=== PATIENT | female | born 1960 | race Caucasian/White ===

== ENCOUNTER 2017-02-18 20:42 | Inpatient (IN) | payer BC ==
[2017-02-18 20:48] VITALS: BMI 33.9
[2017-02-18] MEDS ORDERED: Albuterol-Ipratrop 3 mg / 0.5 (3 ml) UD IH STA (21:53)
--- NOTE | 2017-02-18 21:58 | ED PDOC ---
Arrival/HPI - General Chief Complaint: Fever Time Seen by Provider: 02/18/17 20:55 Historian: Patient - History of Present Illness Narrative History of Present Illness (Text): 02/18/17 21:50 A 56 year old female presents to the emergency department complaining of fever, slight nonproductive cough. Patient reports had some chest pain with deep breaths and mildly shortness of breath. Also, patient didn't realize she has fever until arriving here, with temperature measuring to 103. Unknown sick contacts. Patient denies any nausea, vomiting, diarrhea, or any other complaints. PMD: Dr. Whitley Past Medical History - Provider Review Nursing Documentation Reviewed: Yes - Infectious Disease Hx of Infectious Diseases: None - Tetanus Immunization Tetanus Immunization: Unknown - Cardiac Hx Hypertension: Yes - Pulmonary Hx Respiratory Disorders: No - Neurological Hx Neurological Disorder: No - HEENT Hx HEENT Disorder: No - Renal Hx Renal Disorder: No - Endocrine/Metabolic Hx Diabetes Mellitus Type 2: Yes Hx Hypothyroidism: Yes - Hematological/Oncological Hx Blood Disorders: No - Integumentary Hx Dermatological Disorder: No - Musculoskeletal/Rheumatological Hx Musculoskeletal Disorders: No - Gastrointestinal Hx Gastrointestinal Disorders: No - Genitourinary/Gynecological Hx Genitourinary Disorders: No - Psychiatric Hx Depression: No Hx Emotional Abuse: No Hx Physical Abuse: No Hx Substance Use: No - Surgical History Hx Cholecystectomy: Yes Other/Comment: OVARIAN CYSTS - Anesthesia Hx Anesthesia: Yes Hx Anesthesia Reactions: No Hx Malignant Hyperthermia: No - Suicidal Assessment Feels Threatened In Home Enviroment: No Family/Social History - Physician Review Nursing Documentation Reviewed: Yes Family/Social History: No Known Family HX Smoking Status: Never Smoked Hx Alcohol Use: No Hx Substance Use: No Hx Substance Use Treatment: No Allergies/Home Meds Allergies/Adverse Reactions: Allergies Penicillins Allergy (Verified 02/18/17 20:49) RASH Home Medications: Home Meds Medication Instructions Recorded Confirmed Levothyroxine Sodium 0.15 mg PO DAILY 08/13/11 02/19/17 Losartan [Cozaar] 50 mg PO DAILY 04/07/14 02/18/17 Celecoxib [celeBREX] 200 mg PO DAILY 02/18/17 02/18/17 Ergocalciferol (Vitamin D2) 50,000 unit PO QWK 02/18/17 02/18/17 [Vitamin D2] Lansoprazole [Prevacid] 30 mg PO DAILY 02/18/17 02/18/17 Metformin HCl [Fortamet] 500 mg PO BID 02/18/17 02/18/17 Mirabegron [Myrbetriq] 50 mg PO DAILY 02/18/17 02/18/17 Mv,Min10/Folic Acid/D3/Ala/Lut 1 tab PO DAILY 02/18/17 02/18/17 [Strovite One Caplet] Review of Systems - Physician Review All systems were reviewed & negative as marked: Yes - Review of Systems Constitutional: Fevers (temperature measuring at 103) Respiratory: SOB (mild), Cough (nonproductive) Cardiovascular: Chest Pain (with deep breathsm) Gastrointestinal: absent: Nausea, Vomiting, Appetite Changes Physical Exam Vital Signs Reviewed: Yes Vital Signs Temp Pulse Resp BP Pulse Ox 02/19/17 05:00 98.6 F 83 22 150/71 99 02/19/17 03:59 98.6 F 84 21 151/75 H 99 02/19/17 02:25 98.6 F 88 18 159/94 H 100 02/19/17 02:09 98.1 F 79 19 129/88 99 02/19/17 00:36 98.6 F 89 17 126/74 96 02/18/17 23:17 98.6 F 02/18/17 22:17 103.5 F H 02/18/17 20:49 103.5 F H 116 H 17 149/113 H 96 02/18/17 20:47 103.5 F H 116 H 17 149/113 H 96 Temperature: Afebrile Blood Pressure: Normal Pulse: Regular Respiratory Rate: Normal Appearance: Positive for: Well-Appearing Pain Distress: None Mental Status: Positive for: Alert and Oriented X 3 - Systems Exam Head: Present: Atraumatic, Normocephalic Pupils: Present: PERRL Extroacular Muscles: Present: EOMI Conjunctiva: Present: Normal Mouth: Present: Dry Pharnyx: Present: Normal Nose (Internal): Present: Normal Inspection Neck: Present: Normal Range of Motion Respiratory/Chest: Present: Decreased Breath Sounds (b/l). No: Wheezes Abdomen: Present: Tenderness, Normal Bowel Sounds. No: Distention, Peritoneal Signs Upper Extremity: Present: Normal Inspection Lower Extremity: Present: Normal Inspection Neurological: Present: GCS=15 Skin: Present: Warm, Dry Psychiatric: Present: Alert, Oriented x 3 Medical Decision Making ED Course and Treatment: 02/18/17 22:56 Impression: 56 year old female presents complaining of a fever and nonproductive cough. Patient is also complaining of chest pain and shortness of breath. Plan: -- VBG -- Labs -- EKG -- Chest X-ray -- Duoneb -- Rocephin -- Tylenol -- Blood Culture -- Urine Culture -- Influenza A B -- Urinalysis -- Reassess and disposition Progress Notes: EKG shows Sinus Tachycardia at [address] depressions on V4, V5, and V6. Interpreted by me. CXR Impression: As read by me, NAD Patient is complaining of LLQ pain. Patient is very tender. Order CT on abdomen to r/o diverticulitis. Anticipated admission for fever and possible diverticulitis as well as chest pain with EKG changes. pt was given prophylactic antibiotics. likely fever of URI or abdominal origin, doubt meningitis. 02/18/17 23:04 Case signed out to Dr. Ring pending CT of Abdomen & Pelvis IV Contrast and reassessment/disposition. 02/21/17 19:35 - Lab Interpretations Microbiology Results: Microbiology Results 02/18/17 22:15 Blood Blood Culture - Preliminary NO GROWTH AFTER 48 HOURS 02/18/17 21:35 Blood Blood Culture - Preliminary NO GROWTH AFTER 48 HOURS 02/18/17 23:59 Urine,Clean Catch Urine Culture - Final Corynebacterium Species Lab Results: 02/18/17 21:35 02/18/17 21:35 Lab Results 02/19/17 11:10: POC Glucose (mg/dL) 90 02/19/17 07:15: POC Glucose (mg/dL) 102 02/19/17 02:44: pO2 239 H, VBG pH 7.42, VBG pCO2 43.0, VBG HCO3 27.9, VBG Total CO2 29.2 H, VBG O2 Sat (Calc) 98.5 H, VBG Base Excess 2.9 H, VBG Potassium 3.9, Sodium 140.0, Chloride 107.0, Glucose 116 H, Lactate 1.8, FiO2 21.0, Venous Blood Potassium 3.9 02/18/17 23:59: Urine Color Yellow, Urine Appearance Clear, Urine pH 7.0, Ur Specific [place] 1.015, Urine Protein Trace H, Urine Glucose (UA) Negative, Urine Ketones Trace H, Urine Blood Negative, Urine Nitrate Negative, Urine Bilirubin Negative, Urine Urobilinogen 0.2, Ur Leukocyte Esterase Negative, Urine RBC 0 - 2, Urine WBC 0 - 2, Ur Epithelial Cells 0 - 2 02/18/17 21:35: Sodium 135, Chloride 99, Potassium 4.4, Carbon Dioxide 26, Anion Gap 15, BUN 9, Creatinine 0.6 L, Est GFR ( Amer) > 60, Est GFR (Non -Af Amer) > 60, Random Glucose 146 H, Calcium 9.4, Phosphorus 3.2, Magnesium 1.5 L, Total Bilirubin 1.5 H, AST 54 H, ALT 52, Alkaline Phosphatase 62, Troponin I < 0.01, Total Protein 8.1, Albumin 4.4, Globulin 3.7, Albumin/ Globulin Ratio 1.2 02/18/17 21:35: pO2 109 H, VBG pH 7.46 H, VBG pCO2 38.0 L, VBG HCO3 27.0, VBG Total CO2 28.2 H, VBG O2 Sat (Calc) 98.1 H, VBG Base Excess 3.1 H, VBG Potassium 4.9, Sodium 136.0, Chloride 101.0, Glucose 150 H, Lactate 2.1, FiO2 21.0, Venous Blood Potassium 4.9 02/18/17 21:35: PT 13.8 H, INR 1.26 H, APTT 30.3 02/18/17 21:35: WBC 10.1 D, RBC 4.24, Hgb 12.3, Hct 38.0, MCV 89.6, MCH 29.0, MCHC 32.4, RDW 13.8, Plt Count 200, MPV 9.8, Gran % 77.9 H, Lymph % (Auto) 12.8 L, [place] % (Auto) 7.4 H, Eos % (Auto) 1.8, Baso % (Auto) 0.1, Gran # 7.89 H, Lymph # 1.3, [place] # 0.8 H, Eos # 0.2, Baso # 0.01 02/18/17 21:35: Influenza Typ A,B (EIA) Negative for flu a/b - RAD Interpretation Radiology Orders: 02/18/17 20:56 CHEST PORTABLE [RAD] Stat 02/18/17 22:53 CHEST,ABD,PEL W/IV CONT ONLY [CT] Stat - Medication Orders Current Medication Orders: Discontinued Medications Acetaminophen (Tylenol 325mg Tab) 975 mg PO ONCE PRN PRN Reason: Fever >100.4 F Last Admin: 02/18/17 22:17 Dose: 975 mg [facility] Pain/Vitals Document 02/18/17 22:17 CAST (Rec: 02/18/17 22:[id number]) Pain Reassessment Is This A Pain ReAssessment? No Sleep Is patient sleeping during reassessment? No Presence of Pain Presence of Pain No Vitals Temperature (97.6 F-99.6 F) 103.5 F Temperature Source Oral Re-Assess: [facility] Pain/Vitals Document 02/18/17 23:17 AB (Rec: 02/19/17 03:58 [id number] Vitals Temperature (97.6 F-99.6 F) 98.6 F Temperature Source Oral Acetaminophen (Tylenol 325mg Tab) 650 mg PO Q4H PRN PRN Reason: Pain, Mild (1-3) Last Admin: 02/21/17 04:11 Dose: 650 mg [facility] Pain/Vitals Document 02/21/17 04:11 IMT (Rec: 02/21/17 04:11 IMT [id number]) Presence of Pain Presence of Pain Yes Location Pain Location Body Site Generalized Description Intermittent Re-Assess: [facility] Pain/Vitals Document 02/21/17 05:11 IMT (Rec: 02/21/17 05:42 IMT [id number] Sleep Is patient sleeping during reassessment? Yes Albuterol/Ipratropium (Duoneb 3 Mg/0.5 Mg (3 Ml) Ud) 3 ml IH STAT STA Stop: 02/18/17 21:54 Last Admin: 02/18/17 23:12 Dose: 3 ml Aspirin (Aspirin Chewable) 324 mg PO STAT STA Stop: 02/18/17 23:00 Last Admin: 02/19/17 00:40 Dose: Not Given Non-Admin Reason: Patient Refused Aspirin (Aspirin Chewable) 81 mg PO DAILY [facility] Last Admin: 02/21/17 09:24 Dose: 81 mg Enoxaparin Sodium (Lovenox) 40 mg SC DAILY SHARATH PRN Reason: Protocol Last Admin: 02/21/17 09:23 Dose: 40 mg Subcutaneous Administrations Document 02/21/17 09:23 LMN (Rec: 02/21/17 09:23 LMN [id number] Injection Site MAR Injection Site Left Arm Charges for Administration # of Subcutaneous Administrations 1 Ergocalciferol (Drisdol 50,000 Intl Units Cap) 1 cap PO QWK SHARATH Last Admin: 02/19/17 10:07 Dose: 1 cap Lactated Ringer's 3,000 ml/ IV (SUPPLIES) 3,000 mls @ 5,715.24 mls/hr IV ONCE ONE PRN Reason: 60 ML/KG/HR Stop: 02/18/17 21:29 Last Admin: 02/18/17 22:16 Dose: Magnesium Sulfate/Dextrose (Magnesium Sulfate 1 Gm/100 Ml D5w) 1 gm in 100 mls @ 100 mls/hr IVPB ONCE ONE Stop: 02/18/17 23:58 Last Admin: 02/19/17 00:11 Dose: 100 mls/hr eMAR Start Stop Document 02/19/17 00:11 [email or web address] (Rec: 02/19/17 00:11 [email or web address] [facility] [id number]) Intravenous Solution Start Date 02/19/17 Start Time 00:11 End Date 02/19/17 Levofloxacin/Dextrose (Levaquin 750mg) 750 mg in 150 mls @ 100 mls/hr IVPB STAT STA Stop: 02/19/17 00:47 Last Admin: 02/19/17 01:08 Dose: 100 mls/hr eMAR Start Stop Document 02/19/17 01:08 [email or web address] (Rec: 02/19/17 01:08 [email or web address] [facility] [id number]) Intravenous Solution Start Date 02/19/17 Start Time 01:08 End Date 02/19/17 Meropenem (Merrem Iv 1 Gm Premix) 50 mls @ 100 mls/hr IVPB Q8 SHARATH PRN Reason: Protocol Stop: 02/27/17 22:01 Last Admin: 02/21/17 05:43 Dose: 100 mls/hr eMAR Start Stop Document 02/21/17 05:43 IMT (Rec: 02/21/17 05:43 IMT [facility] [id number]) Intravenous Solution Start Date 02/21/17 Start Time 05:43 End Date 02/21/17 End time 06:13 Total Infusion Time 30 Meropenem 1 gm/ Sodium (Chloride) 100 mls @ 100 mls/hr IVPB Q8 [facility] Levothyroxine Sodium (Synthroid) 112 mcg PO 0600 [facility] Last Admin: 02/21/17 05:43 Dose: 112 mcg Losartan Potassium (Cozaar) 50 mg PO DAILY [facility] Last Admin: 02/21/17 09:23 Dose: 50 mg Magnesium Oxide (Mag-Ox) 400 mg PO BID [facility] Last Admin: 02/21/17 09:24 Dose: 400 mg Metformin HCl (Glucophage) 500 mg PO BID [facility] Last Admin: 02/19/17 10:08 Dose: Mirabegron [ Myrbetriq] 50 Mg ( Home Med) 50 mg PO DAILY [facility] Last Admin: 02/19/17 10:08 Dose: Mv,Min10/Folic Acid/D3/Ala/Lut [Strovite One Caplet] (Home Med) 1 tab PO DAILY [facility] Last Admin: 02/19/17 10:08 Dose: Mv,Min10/Folic Acid/D3/Ala/Lut [Strovite One Caplet] (Home Med) 1 tab PO DAILY [facility] Last Admin: 02/20/17 09:46 Dose: 1 tab Mirabegron [ Myrbetriq] 50 Mg ( Home Med) 50 mg PO DAILY [facility] Last Admin: 02/20/17 09:46 Dose: 50 mg Pantoprazole Sodium (Protonix Ec Tab) 40 mg PO 0600 [facility] Last Admin: 02/21/17 05:45 Dose: 40 mg - Scribe Statement The provider has reviewed the documentation as recorded by the Renetta Ty Provider Scribe Attestation: All medical record entries made by the Renetta were at my direction and personally dictated by me. I have reviewed the chart and agree that the record accurately reflects my personal performance of the history, physical exam, medical decision making, and the department course for this patient. I have also personally directed, reviewed, and agree with the discharge instructions and disposition. Disposition/Present on Arrival - Present on Arrival Any Indicators Present on Arrival: No History of DVT/PE: No History of Uncontrolled Diabetes: No Urinary Catheter: No History of Decub. Ulcer: No History Surgical Site Infection Following: None - Disposition Have Diagnosis and Disposition been Completed?: Yes Diagnosis: Sepsis Disposition: HOSPITALIZED Disposition Time: 00:00 Patient Plan: Admission Condition: IMPROVED
[2017-02-18 22:05] LABS: BASO # 0.01 K/mm3 (0.0-2.0); BASO % 0.1 % (0.0-3.0); EOS # 0.2 (0.0-0.7); EOS % 1.8 % (1.5-5.0); GRAN # 7.89 (1.4-6.5); GRAN % 77.9 % (50.0-68.0); HEMOGLOBIN 12.3 g/dL (12.0-16.0); LYMPH # 1.3 (1.2-3.4); LYMPH % 12.8 % (22.0-35.0); MEAN CELL VOLUME 89.6 fl (80.0-105.0); MEAN CORPUSCULAR HGB CONC 32.4 g/dl (31.0-37.0); MEAN PLATELET VOLUME 9.8 fl (7.0-11.0); MONO # 0.8 (0.1-0.6); MONO % 7.4 % (1.0-6.0); RBC 4.24 10^6/uL (3.5-6.1); RED CELL DISTRIBUTION WIDTH 13.8 % (11.5-14.5); WHITE BLOOD COUNT 10.1 10^3/ul (4.5-11.0)
[2017-02-18 22:18] LABS: INR 1.26 (0.93-1.08); PARTIAL THROMBOPLASTIN TIME 30.3 Seconds (25.1-36.5); PROTHROMBIN TIME 13.8 SECONDS (9.4-12.5)
[2017-02-18 22:32] LABS: ALB/GLOB RATIO 1.2 (1.1-1.8); ALBUMIN 4.4 g/dL (3.0-4.8); CALCIUM 9.4 mg/dL (8.4-10.5); GFR AFRICAN-AMERICAN > 60; GFR NON-AFRICAN AMERICAN > 60
[2017-02-18 22:33] LABS: ALT/SGPT 52 U/L (7-56); AST/SGOT 54 U/L (14-36); BLOOD UREA NITROGEN 9 mg/dL (7-21); MAGNESIUM 1.5 mg/dL (1.7-2.2)
[2017-02-18 22:44] LABS: TROPONIN I < 0.01 ng/mL
[2017-02-18] MEDS ORDERED: cefTRIAXone 1 gm 1 GM/100 ML BAG IVPB STA (22:50)
[2017-02-18] MEDS ORDERED: Piperacillin/Tazobact 3.375 gm 100 ML IVPB STA (22:54)
[2017-02-18] MEDS ORDERED: Magnesium Sulfate 1 gm in D5W 1 GM/100 ML BAG IVPB ONE (22:59)
--- NOTE | 2017-02-18 23:14 | ED PDOC ---
Physical Exam Vital Signs Temp Pulse Resp BP Pulse Ox 02/19/17 05:00 98.6 F 83 22 150/71 99 02/19/17 03:59 98.6 F 84 21 151/75 H 99 02/19/17 02:25 98.6 F 88 18 159/94 H 100 02/19/17 02:09 98.1 F 79 19 129/88 99 02/19/17 00:36 98.6 F 89 17 126/74 96 02/18/17 23:17 98.6 F 02/18/17 22:17 103.5 F H 02/18/17 20:49 103.5 F H 116 H 17 149/113 H 96 02/18/17 20:47 103.5 F H 116 H 17 149/113 H 96 Medical Decision Making ED Course and Treatment: 02/18/17 23:09 Case endorsed to me by Dr. Mendoza. Pending CT Abd & Pelvis and reassessment/ disposition. 02/19/17 00:40 Labs were reviewed. Lactate shows 2.1. Code sepsis called. 02/19/17 04:15 EXAM: CT Chest With Intravenous Contrast and CT Abdomen and Pelvis With Intravenous Contrast Dictated and Authenticated by: Shannan Akins MD 02/19/2017 4:02 AM IMPRESSION: - Question mild pulmonary vascular congestion. Recommend clinical correlation. - Otherwise, no evidence of significant acute process in the chest, abdomen or pelvis. - 3 cm hyperdense right adnexal mass. Differential considerations include a complex cystic lesion of the right ovary, such as a hemorrhagic cyst or endometrioma, or an exophytic right uterine fibroid. Pelvic ultrasound is recommended for further evaluation. If there is acute right adnexal or pelvic pain or tenderness, consider emergent pelvic ultrasound. - See above for remaining findings. 02/19/17 05:[address] Whitley who is aware and agrees with the plan. He accepts patient. Patient will go to [facility] [place] for sepsis. - Lab Interpretations Lab Results: 02/18/17 21:35 02/18/17 21:35 Lab Results 02/19/17 02:44: pO2 239 H, VBG pH 7.42, VBG pCO2 43.0, VBG HCO3 27.9, VBG Total CO2 29.2 H, VBG O2 Sat (Calc) 98.5 H, VBG Base Excess 2.9 H, VBG Potassium 3.9, Sodium 140.0, Chloride 107.0, Glucose 116 H, Lactate 1.8, FiO2 21.0, Venous Blood Potassium 3.9 02/18/17 23:59: Urine Color Yellow, Urine Appearance Clear, Urine pH 7.0, Ur Specific [place] 1.015, Urine Protein Trace H, Urine Glucose (UA) Negative, Urine Ketones Trace H, Urine Blood Negative, Urine Nitrate Negative, Urine Bilirubin Negative, Urine Urobilinogen 0.2, Ur Leukocyte Esterase Negative, Urine RBC 0 - 2, Urine WBC 0 - 2, Ur Epithelial Cells 0 - 2 02/18/17 21:35: Sodium 135, Chloride 99, Potassium 4.4, Carbon Dioxide 26, Anion Gap 15, BUN 9, Creatinine 0.6 L, Est GFR ( Amer) > 60, Est GFR (Non -Af Amer) > 60, Random Glucose 146 H, Calcium 9.4, Phosphorus 3.2, Magnesium 1.5 L, Total Bilirubin 1.5 H, AST 54 H, ALT 52, Alkaline Phosphatase 62, Troponin I < 0.01, Total Protein 8.1, Albumin 4.4, Globulin 3.7, Albumin/ Globulin Ratio 1.2 02/18/17 21:35: pO2 109 H, VBG pH 7.46 H, VBG pCO2 38.0 L, VBG HCO3 27.0, VBG Total CO2 28.2 H, VBG O2 Sat (Calc) 98.1 H, VBG Base Excess 3.1 H, VBG Potassium 4.9, Sodium 136.0, Chloride 101.0, Glucose 150 H, Lactate 2.1, FiO2 21.0, Venous Blood Potassium 4.9 02/18/17 21:35: PT 13.8 H, INR 1.26 H, APTT 30.3 02/18/17 21:35: WBC 10.1 D, RBC 4.24, Hgb 12.3, Hct 38.0, MCV 89.6, MCH 29.0, MCHC 32.4, RDW 13.8, Plt Count 200, MPV 9.8, Gran % 77.9 H, Lymph % (Auto) 12.8 L, [place] % (Auto) 7.4 H, Eos % (Auto) 1.8, Baso % (Auto) 0.1, Gran # 7.89 H, Lymph # 1.3, [place] # 0.8 H, Eos # 0.2, Baso # 0.01 02/18/17 21:35: Influenza Typ A,B (EIA) Negative for flu a/b - RAD Interpretation Radiology Orders: 02/18/17 20:56 CHEST PORTABLE [RAD] Stat 02/18/17 22:53 CHEST,ABD,PEL W/IV CONT ONLY [CT] Stat - Medication Orders Current Medication Orders: Acetaminophen (Tylenol 325mg Tab) 975 mg PO ONCE PRN PRN Reason: Fever >100.4 F Last Admin: 02/18/17 22:17 Dose: 975 mg MAR Pain/Vitals Document 02/18/17 22:17 CAST (Rec: 02/18/17 22:17 [email or web address] [facility] [id number]) Pain Reassessment Is This A Pain ReAssessment? No Sleep Is patient sleeping during reassessment? No Presence of Pain Presence of Pain No Vitals Temperature (97.6 F-99.6 F) 103.5 F Temperature Source Oral Re-Assess: MAR Pain/Vitals Document 02/18/17 23:17 AB (Rec: 02/19/17 03:58 AB [facility] [id number]) Vitals Temperature (97.6 F-99.6 F) 98.6 F Temperature Source Oral Discontinued Medications Albuterol/Ipratropium (Duoneb 3 Mg/0.5 Mg (3 Ml) Ud) 3 ml IH STAT STA Stop: 02/18/17 21:54 Last Admin: 02/18/17 23:12 Dose: 3 ml Aspirin (Aspirin Chewable) 324 mg PO STAT STA Stop: 02/18/17 23:00 Last Admin: 02/19/17 00:40 Dose: Not Given Non-Admin Reason: Patient Refused Lactated Ringer's 3,000 ml/ IV (SUPPLIES) 3,000 mls @ 5,715.24 mls/hr IV ONCE ONE PRN Reason: 60 ML/KG/HR Stop: 02/18/17 21:29 Last Admin: 02/18/17 22:16 Dose: Magnesium Sulfate/Dextrose (Magnesium Sulfate 1 Gm/100 Ml D5w) 1 gm in 100 mls @ 100 mls/hr IVPB ONCE ONE Stop: 02/18/17 23:58 Last Admin: 02/19/17 00:11 Dose: 100 mls/hr eMAR Start Stop Document 02/19/17 00:11 [email or web address] (Rec: 02/19/17 00:11 [email or web address] [facility] [id number]) Intravenous Solution Start Date 02/19/17 Start Time 00:11 End Date 02/19/17 Levofloxacin/Dextrose (Levaquin 750mg) 750 mg in 150 mls @ 100 mls/hr IVPB STAT STA Stop: 02/19/17 00:47 Last Admin: 02/19/17 01:08 Dose: 100 mls/hr eMAR Start Stop Document 02/19/17 01:08 [email or web address] (Rec: 02/19/17 01:08 [email or web address] [id number]) Intravenous Solution Start Date 02/19/17 Start Time 01:08 End Date 02/19/17 - Scribe Statement The provider has reviewed the documentation as recorded by the Renetta Medina Provider Scribe Attestation: All medical record entries made by the Lennyibsiria were at my direction and personally dictated by me. I have reviewed the chart and agree that the record accurately reflects my personal performance of the history, physical exam, medical decision making, and the department course for this patient. I have also personally directed, reviewed, and agree with the discharge instructions and disposition. Disposition/Present on Arrival - Present on Arrival Any Indicators Present on Arrival: No History of DVT/PE: No History of Uncontrolled Diabetes: No Urinary Catheter: No History of Decub. Ulcer: No History Surgical Site Infection Following: None - Disposition Have Diagnosis and Disposition been Completed?: Yes Diagnosis: Sepsis Disposition: HOSPITALIZED Disposition Time: 04:25 Patient Problems: Current Active Problems Problem Status Onset Sepsis Acute Condition: IMPROVED
[2017-02-18] MEDS ORDERED: levoFLOXacin 750 mg in D5W 750 MG/150 ML BAG IVPB STA (23:18)
[2017-02-18] MEDS ORDERED: Iohexol 350 MG/100 ML VIAL ONE (23:48)
[2017-02-19 00:25] LABS: URINE BILIRUBIN NEGATIVE (NEGATIVE); URINE BLOOD NEGATIVE (NEGATIVE); URINE GLUCOSE (UA) NEGATIVE (NEGATIVE); URINE LEUKOCYTE ESTERASE NEGATIVE Leu/uL (NEGATIVE); URINE NITRATE NEGATIVE (NEGATIVE); URINE PROTEIN TRACE mg/dL (<30 mg/dL); URINE UROBILINOGEN 0.2 E.U./dL (<1 E.U./dL)
[2017-02-19 00:28] LABS: URINE APPEARANCE CLEAR (CLEAR); URINE COLOR YELLOW (YELLOW)
[2017-02-19 00:31] LABS: VENOUS BLOOD GAS BASE EXCESS 3.1 mmol/L (0.0-2.0); VENOUS BLOOD GAS PO2 109 mm/Hg (30-55); VENOUS BLOOD PH 7.46 (7.32-7.43)
[2017-02-19 00:50] LABS: URINE EPITHELIAL CELLS 0 - 2 /hpf (0-5); URINE RBC 0 - 2 /hpf (0-2); URINE WBC 0 - 2 /hpf (0-6)
[2017-02-19 03:19] LABS: VENOUS BLOOD GAS BASE EXCESS 2.9 mmol/L (0.0-2.0); VENOUS BLOOD GAS PO2 239 mm/Hg (30-55); VENOUS BLOOD PH 7.42 (7.32-7.43)
--- NOTE | 2017-02-19 04:02 | CT ---
EXAM: CT Chest With Intravenous Contrast CT Abdomen and Pelvis With Intravenous Contrast EXAM DATE/TIME: 02/18/2017 10:53 PM CLINICAL HISTORY: 56 years old, female; Pain; Abdominal pain; Acute; Chest pain; Type not specified; Additional info: Llq pain TECHNIQUE: Axial computed tomography images of the chest, abdomen and pelvis with intravenous contrast. All CT scans at this facility use one or more dose reduction techniques, viz.: automated exposure control; ma/kV adjustment per patient size (including targeted exams where dose is matched to indication; i.e. head); or iterative reconstruction technique. All CT scans at this facility use one or more dose reduction techniques, viz.: automated exposure control; ma/kV adjustment per patient size (including targeted exams where dose is matched to indication; i.e. head); or iterative reconstruction technique. Coronal and sagittal reformatted images were created and reviewed. CONTRAST: 100 mL of OMNI 350 administered intravenously. COMPARISON: No relevant prior studies available. FINDINGS: LIMITATIONS: Mild to moderate motion artifact. CHEST: LUNGS: Evaluation is somewhat limited by respiratory motion artifact. Question mild pulmonary vascular congestion. There is mild, smooth interlobular septal thickening seen in the anterior lungs bilaterally, e.g., image 37 series 601. Scattered areas of linear scarring or atelectasis noted. No evidence of significant focal consolidation/infiltrate in the lungs. PLEURAL SPACE: No pneumothorax or significant pleural effusions seen. HEART: No evidence of significant pericardial effusion. ABDOMEN: LIVER: Fatty infiltration of the liver. GALLBLADDER AND BILE DUCTS: Cholecystectomy clips. Mild biliary ductal dilatation, most likely related to the post cholecystectomy state. No radiopaque common bile duct stones are visualized. Recommend correlation with LFTs as clinically indicated. PANCREAS: No CT evidence of acute pancreatitis. SPLEEN: No acute abnormality of the spleen identified. ADRENALS: No acute abnormality of the adrenal glands. KIDNEYS AND URETERS: Low density lesions in the kidneys bilaterally, most likely representing cysts. The largest of these measures 1.3 cm. No acute abnormality of the kidneys identified. STOMACH AND BOWEL: No acute abnormality of the stomach, small bowel or colon identified. No evidence of bowel obstruction. APPENDIX: Appendix is seen, and is within normal limits in appearance. PELVIS: BLADDER: No acute abnormality of the bladder identified. REPRODUCTIVE: Oval-shaped, hyperdense, well-defined lesion is seen in the right adnexal region. This measures 3 x 2 cm maximally. It abuts the uterus on the right. CHEST, ABDOMEN and PELVIS: INTRAPERITONEAL SPACE: No evidence of free intraperitoneal air or fluid. BONES/JOINTS: No acute fractures or other acute bony abnormality noted. SOFT TISSUES: Small umbilical hernia, containing only fat. VASCULATURE: Exam is nondiagnostic for aortic dissection and pulmonary emboli, secondary to suboptimal enhancement of the aorta and pulmonary arteries. No evidence of abdominal aortic aneurysm. LYMPH NODES: No evidence of diffuse lymphadenopathy. IMPRESSION: - Question mild pulmonary vascular congestion. Recommend clinical correlation. - Otherwise, no evidence of significant acute process in the chest, abdomen or pelvis. - 3 cm hyperdense right adnexal mass. Differential considerations include a complex cystic lesion of the right ovary, such as a hemorrhagic cyst or endometrioma, or an exophytic right uterine fibroid. Pelvic ultrasound is recommended for further evaluation. If there is acute right adnexal or pelvic pain or tenderness, consider emergent pelvic ultrasound. - See above for remaining findings.
--- NOTE | 2017-02-19 06:29 | PCM.SEPTIC ---
Sepsis Progress Note - Reassessment Type Date of Evaluation: 02/19/17 Time of Evaluation: 06:15 Reassessment Type: Non-invasive reassessment - Non Invasive Reassessment Were the most recent vital sign reviewed: Yes Vital Sign (Latest): Temp Pulse Resp BP Pulse Ox 98.6 F 83 22 150/71 99 02/19/17 05:00 02/19/17 05:00 02/19/17 05:00 02/19/17 05:00 02/19/17 05:00 Cardiovascular: Yes: Regular Rate, Rhythm. No: Edema, JVD, Tachycardia Respiratory: Yes: Decreased Breath Sounds (bases). No: Accessory Muscle Use, Wheezing, Respiratory Distress Capillary Refill: Normal (Less than 2 sec) Pulses: Normal Radial, Decreased Dorsalis Pedis, Decreased Posterior Tibialis Skin: Normal Color, Warm, Dry <Alberto Denton - Last Filed: 02/19/17 06:27> - Non Invasive Reassessment Vital Sign (Latest): Temp Pulse Resp BP Pulse Ox 98.6 F 83 22 150/71 99 02/19/17 05:00 02/19/17 05:00 02/19/17 05:00 02/19/17 05:00 02/19/17 05:00 <Argelia Kaiser - Last Filed: 02/19/17 06:36> Attending/Attestation - Attestation I have personally seen and examined this patient.: No I have fully participated in the care of the patient.: Yes I have reviewed all pertinent clinical information, including history, physical exam and plan: Yes <Argelia Kaiser - Last Filed: 02/19/17 06:36>
[2017-02-19] MEDS ORDERED: Ergocalciferol 50,000 Intl Units Cap PO SCH (10:00)
[2017-02-19] MEDS ORDERED: D3 PO SCH ×2 (10:00→16:29)
[2017-02-19] MEDS ORDERED: FOLIC ACID PO SCH ×2 (10:00→16:29)
[2017-02-19] MEDS ORDERED: LUT PO SCH ×2 (10:00→16:29)
[2017-02-19] MEDS ORDERED: ALA PO SCH ×2 (10:00→16:29)
[2017-02-19] MEDS ORDERED: MV MIN10 PO SCH ×2 (10:00→16:29)
[2017-02-19] MEDS ORDERED: Mirabegron [Myrbetriq] 50 MG (HOME MED) PO SCH ×2 (10:00→16:30)
[2017-02-19] MEDS: Magnesium Oxide 400 mg Tab UD PO SCH ×2 (10:07→17:42)
--- NOTE | 2017-02-19 11:23 | RAD ---
HISTORY: Sepsis Patient COMPARISON: No prior. FINDINGS: LUNGS: No active pulmonary disease. PLEURA: No significant pleural effusion identified, no pneumothorax apparent. CARDIOVASCULAR: Normal. OSSEOUS STRUCTURES: No significant abnormalities. VISUALIZED UPPER ABDOMEN: Normal. OTHER FINDINGS: None. IMPRESSION: No active disease.
[2017-02-19 16:16] LABS: BASO # 0.01 K/mm3 (0.0-2.0); BASO % 0.1 % (0.0-3.0); EOS # 0.5 (0.0-0.7); EOS % 7.2 % (1.5-5.0); GRAN # 3.64 (1.4-6.5); GRAN % 52.5 % (50.0-68.0); HEMOGLOBIN 11.3 g/dL (12.0-16.0); LYMPH # 2.3 (1.2-3.4); LYMPH % 33.4 % (22.0-35.0); MEAN CORPUSCULAR HEMOGLOBIN 28.9 pg (25.0-35.0); MEAN CORPUSCULAR HGB CONC 32.1 g/dl (31.0-37.0); MEAN PLATELET VOLUME 9.5 fl (7.0-11.0); MONO # 0.5 (0.1-0.6); MONO % 6.8 % (1.0-6.0); RBC 3.91 10^6/uL (3.5-6.1); WHITE BLOOD COUNT 6.9 10^3/ul (4.5-11.0)
[2017-02-19 16:36] LABS: ALB/GLOB RATIO 1.1 (1.1-1.8); ALBUMIN 3.8 g/dL (3.0-4.8); ALT/SGPT 49 U/L (7-56); AST/SGOT 26 U/L (14-36); BLOOD UREA NITROGEN 8 mg/dL (7-21); CALCIUM 9.2 mg/dL (8.4-10.5); GFR AFRICAN-AMERICAN > 60; GFR NON-AFRICAN AMERICAN > 60
--- NOTE | 2017-02-19 17:10 | CARD ---
APPROVED REPORT EKG Measurement Heart [id number] <Conclusion> Sinus tachycardia Nonspecific ST abnormality Abnormal ECG
--- NOTE | 2017-02-19 19:14 | CON ---
DATE: 02/19/2017 NEUROLOGY CONSULTATION CHIEF COMPLAINT: Left-sided weakness. HISTORY OF PRESENT ILLNESS: This is a 56-year-old woman with history of type 2 diabetes, hypertension, dyslipidemia, who came in for intermittent atypical chest pain and also mentioned some left arm numbness. I was consulted for left-sided numbness and weakness. She said she had been having chronic left-sided weakness for years and left-sided numbness but more than usual. She occasionally drags her left leg. She has very poor balance. Although, she has not had any falls, no focal weakness of extremities, she says sometimes her left leg gives out more than her right. PAST MEDICAL HISTORY: Diabetes, hypertension, dyslipidemia. ALLERGIES: PENICILLIN. MEDICATIONS: Patient is on aspirin, levothyroxine, meropenem. SOCIAL HISTORY: No illicit drug use, smoking, or EtOH use. REVIEW OF SYSTEMS: A 14-point review of systems is negative except as in the HPI. PHYSICAL EXAMINATION VITAL SIGNS: Temperature of 98, pulse rate of 78, blood pressure of /73, respiratory rate of 20, oxygen saturation 96% via room air. GENERAL: The patient is sitting up in bed in no acute distress. HEENT: Head is atraumatic and normocephalic. PERRLA. Extraocular muscles are intact. NECK: Supple. No JVD. No adenopathy noted. LUNGS: Clear to auscultation. No adventitious sounds. HEART: S1 and S2, normal rate and rhythm. No murmurs, rubs, or gallops. ABDOMEN: Soft, nontender, nondistended. Bowel sounds are present. EXTREMITIES: No clubbing, no cyanosis. Peripheral pulses 2+ felt bilaterally. NEUROLOGIC: The patient is alert and oriented to person, place, month, and year. Speech is fluent without any errors. Cranial nerves II through XII intact. Motor exam, moves all extremities equally. Toes are downgoing bilaterally. Sensory exam: Decreased light touch, pinprick up to the calves bilaterally. DTRs are 2+ throughout, 1 at both knees and as at the ankles. Qkychi-dc-mzky intact. She has also lazy left eye. Gait is slightly wide base. Romberg is negative. LABORATORY DATA: Sodium 142, potassium 4, chloride of 104, carbon dioxide of 29, BUN of 8, creatinine of 0.7, and random glucose of 110. ASSESSMENT: This is a 56-year-old woman with history of type 2 diabetes mellitus, hypertension, dyslipidemia, came for atypical chest pain, left arm numbness, had elevated systolic and diastolic blood pressures upon her admission of 149/113. Currently, she feels her left arm is numb and has chronic left-sided weakness in terms of left-sided giving out more than usual. She does have features of neurological examination and diabetic peripheral neuropathy. At this time, we recommend: 1. MRI of the brain with and without contrast as well as MRI of the C-spine and lumbar spine. 2. Physical therapy assessment. 3. A1c. 4. B12 level. 5. Continue current present medical management and advised diabetic, low cholesterol, low fat diet. Thank you for this consult. Asad Rod MD
[2017-02-19] MEDS: Meropenem IV 1 gm in NS 50 ML IVPB SCH (21:30)
--- NOTE | 2017-02-20 01:02 | HP ---
HISTORY OF PRESENT ILLNESS: The patient is a 56-year-old female came in with left lower quadrant abdominal pain and fever 102. The patient came into the hospital with left lower quadrant abdominal pain. She has this pain for the last couple of days. She also had a fever for 24 hours 102 and she came into the ER for evaluation. She has no other complaints. She denied any nausea. No vomiting. She denied any cough, any burning urination. The patient also noted that she does have suprapubic discomfort on urination. She has it for few months nothing too new and that is not the pain she came to the ER for. However, the patient denied any diarrhea, any blood in the stool, any burning urination and no history of kidney stones. No nausea or vomiting. PAST MEDICAL HISTORY: She does have a history of thyroid cancer. The patient had cryptogenic liver disease, cirrhosis. She also had hypothyroidism, iatrogenic. She also have acid reflux; hypertension; vitamin D deficiency; bladder discomforts, she is on Myrbetriq; diabetes type 2 on metformin. ALLERGIES: PENICILLIN. SOCIAL HISTORY: She is not smoking, not drinking. She lives with her , have 2 children and she took take care of her mom as she is an elderly lady. REVIEW OF SYSTEMS: She complain some type of back pain. She did mention also left-sided weakness, which she has it for few months, 6 months also suprapubic discomforts. PHYSICAL EXAMINATION: VITAL SIGNS: When she came in she had 101.9, on repeat temperature 99.9, heart rate 85, blood pressure 131/72, respirations 20 and saturation 98%. HEAD AND NECK: Normal. No JVD. No thyromegaly. CHEST: Clear. CARDIAC: First sound and second sound normal. ABDOMEN: Soft, but there is tenderness on the suprapubic area and more on the left side. There is no tenderness on the right side. EXTREMITIES: No edema. NEUROLOGIC: The patient seems like weak on the left upper extremity and lower extremity. LABORATORY DATA: White count 10.1, hemoglobin 12.3, hematocrit 38 and platelets 200. Chemistry noted for sodium 135, potassium 4.4, chloride 99, bicarb 26, BUN 9, creatinine 0.6, blood sugar is 146, phosphorus 3.2 and magnesium low 1.5. AST slightly elevated 54, ALT is normal 52, alkaline phosphatase is normal 62, troponin is normal. Albumin, globulin and albumin-globulin ration is normal. TSH is 0.29. The patient also had some radiological studies done including CT abdomen and pelvis, which shows right ovarian cystic mass 3 cm in size. Her chest x-ray was done also which shows no active pulmonary disease. She also had electrocardiogram which is sinus rhythm, sinus tachycardia, nonspecific ST-T wave abnormalities. Her CT does not reveal her etiology, negative for colitis. Blood cultures have been obtained, urine culture has been obtained. The patient had urine culture, which was negative and she had a blood gas also which shows pO2 is 239, pH 7.42, pCO2 43, saturating 98% and FiO2 21%. Also have PT 15.8 and INR 1.26, PTT is normal. The patient also has influenza type A and B negative. IMPRESSION AND PLAN: 1. This is a 56-year-old female who came in with fever 102, abdominal discomfort, CT is negative. We will admit the patient for possible intra-abdominal infections and possible sepsis. We will get the culture results within 24 hours. We will continue IV fluids. Continue Levaquin 750 mg x1 dose, which covered 24 hours. Infectious Disease consult Dr. Jackson and discussion with the patient about the ovarian cyst. She need to follow up with the Gynecology for further evaluation of that cystic mass, which could be malignancy also. 2. Hypothyroidism. 3. Liver cirrhosis, fatty liver. 4. Obesity. 5. Left-sided weakness, I will get a Neurology consult Dr. Asad Rod, discussed with him and further evaluation will be done at this time. Continue current therapy. Gilbert Whitley MD
--- NOTE | 2017-02-20 05:04 | CON ---
DATE: 02/19/2017 The patient is in bed, in no acute distress, was seen early this morning in 564, bed 2. CHIEF COMPLAINT: Fever times several days. HISTORY OF PRESENT ILLNESS: This 56-year-old female with past medical history significant for hypertension, diabetes, and dyslipidemia, presented with chest pain, abdominal pain, fevers and the patient also with thyroid disease. She was seen in the emergency room, admitted with the diagnosis of sepsis. Infectious Disease consultation requested. PAST MEDICAL HISTORY: Significant for hypertension, thyroid disease, diabetes, migraines and obesity with a BMI of 33. PAST SURGICAL HISTORY: Significant for cholecystectomy. ALLERGIES: THE PATIENT IS ALLERGIC TO PENICILLIN. SHE DEVELOPS A RASH. MEDICATIONS: Medications at home include the patient to be on levothyroxine, , vitamin B12, losartan, Celebrex, Prevacid and metformin. REVIEW OF SYSTEMS: The patient does have fevers. She does complain of chills. She has complained of chest pain, abdominal pain, generalized aches and pains, muscle pain, joint pain, and she is also complaining of cough pleuritic in nature, chest pain, and shortness of breath. PHYSICAL EXAMINATION: GENERAL: The patient is in bed, feels uncomfortable. VITAL SIGNS: Temperature 99.9, T-max is 103.5, heart rate of 85, it was up to 116, respiratory rate of 22 and blood pressure 150/70. HEENT: Unremarkable. NECK: Supple. LUNGS: Have decreased breath sounds. HEART: Normal S1 and S2. ABDOMEN: Soft and nontender. No organomegaly. No rebound. No guarding. LABORATORY DATA: Laboratory examination reveals a white count of 10,000, hemoglobin of 12 and platelets of 200, 77% granulocytosis and coagulation is noted. Both the x-rays are reviewed. BUN of 8, creatinine of 0.7. TSH is 0.29. Bilirubin 1.8. Urinalysis is noted, 0-2 rbc's, no wbc's. Influenza serology is negative. Microbiology is pending. Dr. Asad Rod's consultation is reviewed. Emergency room chart is reviewed. The patient had a chest x-ray, which is negative. The patient had a CAT scan of the chest and CAT scan of the abdomen, which reveals the vascular congestion. There is a 3 cm hypodense right adnexal mass. CAT scan of the abdomen and pelvis is read by Shannan Tashi, who recommends pelvic ultrasound is recommended. ASSESSMENT AND PLAN: A 56-year-old female with hypertension, type 2 diabetes, dyslipidemia, migraine, obesity with generalized aches and pains. No fevers. No chills. 1. Systemic inflammatory response syndrome. Nonspecific findings on the CAT scan of the chest and abdomen. We will order meropenem, we will order procalcitonin. We will check on the culture result. ; however influenza is reported to be negative. We will check on initial cultures results, we will treat the patient with meropenem. I will make further recommendations. Also, order an human immunodeficiency virus on her. We will review the CAT scan and we will follow with you. Benoit Jackson MD
[2017-02-20] MEDS: Levothyroxine 112 MCG TAB PO SCH (06:56)
[2017-02-20] MEDS: Meropenem IV 1 gm in NS 50 ML IVPB SCH ×3 (06:56→22:13)
[2017-02-20] MEDS: Pantoprazole 40 mg EC Tab PO SCH (06:56)
[2017-02-20] MEDS: Enoxaparin 40 mg Syringe SC SCH (09:45)
[2017-02-20] MEDS: Magnesium Oxide 400 mg Tab UD PO SCH ×2 (09:45→18:07)
[2017-02-20] MEDS ORDERED: Gadodiamide 287 MG/ML VIAL (15ML) IV ONE (14:37)
--- NOTE | 2017-02-20 15:11 | MRI ---
PROCEDURE: MRI BRAIN WITH AND WITHOUT CONTRAST HISTORY: left arm numbness COMPARISON: None. TECHNIQUE: Multiplanar, multisequence MR images of the brain were obtained with and without intravenous contrast enhancement. 15 cc of Omniscan was utilized for contrast enhancement. FINDINGS: HEMORRHAGE: None DWI: No evidence of an acute or early subacute infarction. BRAIN PARENCHYMA: There is a 5 mm ovoid structure at the superior left frontal periventricular white matter increased in signal on FLAIR and T2 signal and diminished in signal intensity on T1 weighted imaging. It does not enhance. In fact, there is no abnormal intracranial enhancement appreciated. The left frontal findings felt to be a benign process with no abnormal vogel or white matter signal abnormality appreciated throughout the remainder of the brain including the posterior fossa. There is no mass-effect. No suspicious extra-axial fluid collection appreciated in the midline brain and appears diffusely unremarkable. ENHANCEMENT: No abnormal intracranial enhancement. VENTRICLES: Unremarkable. No hydrocephalus. CRANIUM: Unremarkable. ORBITS: Grossly unremarkable. PARANASAL SINUSES/MASTOIDS: Prominent mucoid material or mucosal inflammatory change seen the right maxillary sinus laterally. VASCULAR SYSTEM: Skull base flow voids intact. OTHER FINDINGS: None . IMPRESSION: There is a tiny nonspecific 5 mm probable cyst at the left frontal periventricular white matter seen at the superior left frontal lobe with no related enhancement. Consider pressure follow-up brain MRI without contrast in 1 year. Remainder the MR examination is unremarkable.
--- NOTE | 2017-02-20 15:19 | MRI ---
PROCEDURE: MR LUMBAR SPINE WITHOUT CONTRAST HISTORY: left arm numbness COMPARISON: None available. TECHNIQUE: Multiecho multiplanar sequences were performed through the lumbar spine without the use of intravenous contrast. FINDINGS: Normal lumbar curvature is appreciate without fracture or spondylolisthesis. No suspicious marrow signal changes are identified. Diffuse disc desiccation affects the lumbar intervertebral discs as well as those of the inferior thoracic spine incidentally captured with L3-4 through L5-S1 inclusively, the most severely affected. Benign hemangiomas are identified at the left side of the L4 and L3 vertebral bodies. The conus medullaris appears normal in intrinsic signal terminating at L1 with the visualized prevertebral and paraspinal soft tissues appear diffusely unremarkable. Incidental note is made of a cyst-like lesion at the right kidney measuring 9 mm. T12-L1: No disc herniation, spinal canal stenosis or neural foraminal narrowing. L1-2: No disc herniation, spinal canal stenosis or neural foraminal narrowing. L2-3: No disc herniation is appreciated. Generalized disc bulging is quite mild but combines with moderate facet joint degenerative arthropathy resulting in left greater the right lateral recess stenosis with the generally adequately patent central canal otherwise appreciable. No significant neural foraminal stenosis. L3-4: No disc herniation is appreciated however moderate severe facet arthropathy combines with mild generalized disc bulging resulting in a mild to moderate central canal stenosis concentrated at the lateral recesses. No significant neural foraminal stenosis bilaterally. L4-5: No disc herniation identified. Gross facet joint degenerative arthropathy is appreciated combining with pslr-wk-pnlpjuxf generalized disc bulging results in a vuvt-xk-jmyydkre central canal stenosis obliterating the lateral recesses symmetrically, with a borderline bilateral neural foraminal stenoses identified. L5-S1: No disc herniation. A large disc osteophyte complex is appreciate combined with gross facet joint degenerative arthropathy resulting in a moderate to severe central canal stenosis and borderline bilateral neural foraminal stenoses. OTHER FINDINGS: None. IMPRESSION: Osky-xe-zmflasyg and moderate to severe degenerative spinal stenoses identified at L4-5 and L5-S1 as discussed above. No definite disc herniation throughout the exam. Multilevel facet arthropathy is concentrated at the mid and superior inferior lumbar spine more so than the upper segment.
--- NOTE | 2017-02-20 15:28 | MRI ---
PROCEDURE: MR CERVICAL SPINE WITH AND WITHOUT CONTRAST HISTORY: left leg numbness, poor balance COMPARISON: None available. TECHNIQUE: Multiecho multiplanar sequences were performed through the cervical spine with and without the use of intravenous contrast. FINDINGS: There is straightening of the cervical curvature without fracture or spondylolisthesis. Benign cyst is identified at the odontoid base posteriorly with remaining Marrow signal unremarkable throughout the cervical spine otherwise. Diffuse disc desiccation is identified and prevertebral paraspinal soft tissues appear diffusely unremarkable. The cervical spinal cord appears normal course caliber and contour. Signal intensity is abnormal at the left C2 level most conspicuous in the transaxial T2 weighted series and minimally apparent in the sagittal T2 series. It measures approximate 3 x 3 by 7 mm (transverse by anteroposterior by superoinferior dimensions). No abnormal enhances appreciated within this area or any of the remainder of the intrathecal or epidural volume. Craniocervical junction is unremarkable swells the upper thoracic spinal cord down to the approximate T4 vertebrae level. Prevertebral paraspinal soft tissues appear diffusely unremarkable. C2-3: No disc herniation, spinal canal stenosis or neural foraminal narrowing. C3-4: No disc herniation, spinal canal stenosis or neural foraminal narrowing. C4-5: No disc herniation, spinal canal stenosis or neural foraminal narrowing. Minimal disc bulging is appreciated encroaching ventral nerve roots without significant stenosis. C5-C6: An additional generalized disc bulge results in borderline central stenosis flattening the ventral thecal sac. A mild degenerative right neural foraminal stenosis identified with none on the left. C6-C7: No disc herniation, spinal canal stenosis or neuroforaminal narrowing. A tiny nerve root cysts seen at the distal left C7 neural foramen. C7-T1: No disc herniation, spinal canal stenosis or neural foraminal narrowing. A tiny nerve root cysts is seen at the distal left C8 neural foramen even smaller than at the C7 level. OTHER FINDINGS: None. IMPRESSION: 1. Limited abnormal long TR signal changes are seen at the left lateral cervical spinal cord. No abnormal enhances seen throughout the examination including this location. This is a nonspecific finding and consider potential demyelination the vasculitis and other etiologies are possible. Follow-up MRI is recommended in 3-6 months. 2. Straightened cervical curvature with limited inferior cervical central canal stenoses as discussed above. 3. Benign cyst base of the odontoid process posteriorly.
--- NOTE | 2017-02-20 19:22 | PN ---
DATE: 02/20/2017 SUBJECTIVE: Patient is in bed in no acute distress, nontoxic. PHYSICAL EXAMINATION: VITAL SIGNS: Temperature is 98, blood pressure is 112/60, respiratory rate of 20, heart rate of . HEENT: Unremarkable. NECK: Supple. LUNGS: Have decreased breath sounds. HEART: Normal S1 and S2. ABDOMEN: Soft. LABORATORY EXAMINATION: Reveals a white count of 6.9, hemoglobin of 11, and procalcitonin is 0.05. LFTs are normal. Bilirubin is mildly elevated and urinalysis is noted. TERE is negative. Influenza is negative. Patient had an MRI of the lumbar spine read by Dr. Juan Miguel Kidd, consistent with spinal stenosis. Patient also had cervical spine MRI, inferior cervical central canal stenosis. Patient also had MRI of the brain, which is reviewed. ASSESSMENT AND PLAN: This is a 56-year-old female with hypertension, diabetes, dyslipidemia, migraine, obesity, with systemic inflammatory response syndrome with questionable right adnexal mass 3 cm, recommended [facility] evaluation with negative cultures, corynebacterium in the urine. Patient is on meropenem. We will follow closely with you. Benoit Jackson MD
--- NOTE | 2017-02-20 20:11 | PN ---
DATE: 02/20/2017 NEUROLOGY FOLLOWUP CHIEF COMPLAINT: Followup for left-sided weakness. SUBJECTIVE: The patient is seen and examined at the bedside. She is doing much better. No acute events overnight. She had an MRI of the brain, which showed tiny nonspecific 5 mm probable cyst in the left frontal periventricular white matter with no enhancement, which has been there for a long time. No acute intracranial abnormalities, otherwise. She had an MRI of the lumbosacral spine, which showed nsmj-ra-hkpysroc and dhdwcqgq-fw-mptceo degenerative spinal stenosis identified at L4-L5 and L5-S1 with no definite disk herniation throughout the exam, but multilevel facet arthropathy mid to superior inferior lumbar spine. She underwent an MRI of the C-spine, which showed a questionable long TR signal change at the left lateral and cervical spine cord at the C2, unlikely causing her symptoms, but will be evaluated with a repeat MRI in about 3 months. She has cervical central canal stenosis as well. Case discussed with the patient at bedside. PAST MEDICAL HISTORY: Diabetes which is controlled, hypertension, and dyslipidemia. ALLERGIES: PENICILLIN. MEDICATIONS: Reviewed by nurse per reconciliation sheet. SOCIAL HISTORY: No illicit drug use, smoking, or EtOH abuse. REVIEW OF SYSTEMS: A 14-point review of systems is negative as mentioned in the HPI. PHYSICAL EXAMINATION: GENERAL: The patient is sitting up in bed, no acute distress. VITAL SIGNS: Temperature 98.1, pulse rate 64, blood pressure 112/63, respiratory rate 20 and oxygen saturation of 98% on room air. HEENT: Head is atraumatic and normocephalic. PERRLA. Extraocular muscles intact. NECK: Supple. No JVD. No adenopathy noted. LUNGS: Clear to auscultation. No adventitious sounds. HEART: S1 and S2. Normal rate and rhythm. No murmurs, rubs, or gallops. ABDOMEN: Soft, nontender and nondistended. Bowel sounds present. EXTREMITIES: No clubbing, no cyanosis. Peripheral pulses 2+ felt bilaterally. NEUROLOGIC: The patient is alert and oriented to person, place, month and year. Speech is fluent without errors. Cranial nerves II through XII intact. Motor exam, moves all extremities equally. Toes are downgoing bilaterally. Sensory exam: Decreased light touch and pinprick up to the calves bilaterally. DTRs are 2+ throughout, 1 at both knees and ankles. Mdcqre-kn-efio intact. She has a lazy left eye. Gait is slightly wide based. Romberg is negative. LABORATORY DATA: Reviewed. Blood sugar today is 103. ASSESSMENT AND PLAN: This is a 56-year-old woman with history of type 2 diabetes mellitus, hypertension, and dyslipidemia, came in for atypical chest pain and left arm numbness, had elevated systolic and diastolic blood pressures upon admission of 149/113, now it has stabilized. She has chronic left-sided weakness. Her MRI of the lumbosacral spine consistent with severe bilateral foraminal and central canal stenosis and degenerative joint disease at L4-L5 level which can correspond to poor gait, imbalance, as well as low back pain radiating down to the legs associated with left side. In addition, she has questionable linear signal at the C2 level of her cervical spinal cord, which may be need to be reevaluated with a repeat MRI in 3 months. The MRI of the brain shows no evidence of demyelinating diseases, small cyst in the left frontal lobe, but does not correspond to her symptoms. RECOMMENDATIONS: At this time, we recommend: 1. Physical therapy and occupational therapy for lumbosacral stenosis. 2. Advice weight reduction. 3. Keep blood pressures between 120 to 130 mmHg. 4. Can follow up with me in the outpatient for an EMG and nerve conduction study to access for any further neuropathy or radiculopathy active. 5. Continue with current present medical management. Once again, thank you for this followup. Asad Rod MD
[2017-02-21] MEDS: Meropenem IV 1 gm in NS 50 ML IVPB SCH (05:43)
[2017-02-21] MEDS: Levothyroxine 112 MCG TAB PO SCH (05:43)
[2017-02-21] MEDS: Pantoprazole 40 mg EC Tab PO SCH (05:45)
[2017-02-21 07:40] VITALS: BP 115/76; PULSE 64; RESP 19; TEMP 97.7; O2SAT 95
[2017-02-21] MEDS: Enoxaparin 40 mg Syringe SC SCH (09:23)
[2017-02-21] MEDS: Magnesium Oxide 400 mg Tab UD PO SCH (09:24)
[2017-02-21] MEDS ORDERED: Meropenem 1 GM in Sodium Chloride 0.9% 100 ML IVPB SCH (14:00)
--- NOTE | 2017-02-21 14:13 | PN ---
DATE: 02/21/2017 SUBJECTIVE: The patient is in bed, in no acute distress. She is doing well. She still has lower pelvic pain. PHYSICAL EXAMINATION: VITAL SIGNS: Temperature is 97, blood pressure is 120/50, and respiratory rate of 20. HEENT: Unremarkable. NECK: Supple. LUNGS: Decreased breath sounds. HEART: Normal S1 and S2. ABDOMEN: Soft. LABORATORY DATA: Reveals white count of 6.9, hemoglobin of 11, and platelets of 166. Chemistries reveals the patient has BUN of 8 and creatinine of 0.7. Procalcitonin is less than 0.05. is noted. HIV is negative. Influenza is negative. Microbiology reveals the blood cultures are negative. Urine culture is Corynebacterium. remarkable urinalysis. Dr. Rod's progress note from yesterday is reviewed. ASSESSMENT AND PLAN: This is a 56-year-old female with hypertension, diabetes, dyslipidemia, migraine, obesity with systemic inflammatory response syndrome, questionable right adnexal mass 3 cm, recommended [employer] evaluation with negative cultures. The patient is ALLERGIC TO PENICILLIN. May use p.o. doxycycline, is to complete therapy as an outpatient on discharge and [employer] evaluation for the CAT scan findings. Benoit Jackson MD
--- NOTE | 2017-02-22 00:51 | PN ---
DATE: 02/20/2017 SUBJECTIVE: Patient is a 56-year-old female who came into the hospital because of having fever of 102. Patient seems better, comfortable, no distress, afebrile. No nausea. No vomiting. On IV Merrem by ID consult. Patient otherwise, has no new complaints. PHYSICAL EXAMINATION VITAL SIGNS: On 02/20/2017, temperature 98.6, heart rate 66, blood pressure 121/57, respirations 20, saturation 100%. HEAD AND NECK: Normal. No JVD. No thyromegaly. CHEST: Clear and good air entry. CARDIOVASCUALR: First sound and second sound normal. ABDOMEN: Soft, nontender except in the lower abdomen. EXTREMITIES: No edema. NEUROLOGIC: Normal except left upper extremity mildly weak. LABORATORY STUDIES: White count 6.9, hemoglobin 11.3, hematocrit 35.2, platelets 166. Chemistries noted for sugar of 139, hemoglobin A1c 5.2, TSH is 0.29, B12 is 740. Patient has an MRI of the spine and of the brain. Recommendation to repeat both of them in 6 months and follow up with neurologist. We discussed that with the patient. Also patient had a CT abdomen and pelvis noted for right ovarian cyst. Patient advised to follow up with the Gynecology about that. IMPRESSION: 1. Fever etiology, blood culture negative. Urine culture, corynebacterium. We will follow up on that, continue Merrem. At this time, we will discuss with ID consult. 2. Left-sided weakness with questionable demyelinating disease on MRI. I am sure recommended repeat MRI and we will follow with Dr. Asad Rod about the case. 3. History of hypothyroidism, history of thyroid cancer. Continue levothyroxine. 4. Mild anemia. Recommendation to follow up with GI as outpatient. PLAN: Continue current therapy, probably patient will be discharged in the morning. Gilbert Whitley MD
--- NOTE | 2017-02-22 03:02 | DS ---
HISTORY OF PRESENT ILLNESS: The patient was admitted with fever, possible beginning of sepsis; however, her blood culture came back negative and urine culture shows Corynebacterium species, less than 50,000. The patient had blood cultures done today is negative. A chest x-ray shows no active disease. The patient seems doing well, will be discharged home. She also had a CT abdomen and pelvis that shows ovarian cyst and hemorrhagic cyst possible rule out mass. We advised the patient to follow up with Gynecology. Plan is discharge the patient and follow up with Gynecology. The patient also seen by consult, he switch her to p.o. doxycycline. PHYSICAL EXAMINATION: GENERAL: Stable. VITAL SIGNS: Temperature is 97.7, heart rate 64, blood pressure 115/76, respirations 19, and saturation 95% on room air. HEAD AND NECK: Normal. No JVD. No thyromegaly. CHEST: Clear, good air entry. CARDIAC: First sound and second sound are normal. ABDOMEN: Soft and nontender. EXTREMITIES: No edema. NEUROLOGIC: Normal. DISCHARGE DIAGNOSES: 1. Fever, etiology unclear. 2. Urinary tract infection. 3. Ovarian rupture, ovarian cyst or hemorrhagic cyst. 4. Left-sided weakness possible. PLAN: Followup with an Urologist. Repeat MRI in 6 months the patient advised. Continue current therapy. Doxycycline for 7 days, baby aspirin 81 mg every day. Continue levothyroxine. Continue metformin. Follow up the patient. Gilbert Whitley MD
[2017-02-22 08:59] LABS: METHYLMALONIC ACID,SERUM 146 nmol/L (87-318)
== END 2017-02-21 14:32 | disposition home or self-care (01) | DRG 864 ==
LOC: ED 20:42 → ERH 02-19 04:30 → 5RNO 02-19 05:29 → OBSVTOIN 02-19 12:00 → ERH 02-20 12:36 → 5RNO 02-20 12:42
PROVIDERS: ADMIT Internal Medicine; ATTEND Internal Medicine
DX: R50.9 Fever, unspecified (principal); N39.0 Urinary tract infection, site not specified; E11.42 Type 2 diabetes mellitus with diabetic polyneuropathy; K74.69 Other cirrhosis of liver; E03.9 Hypothyroidism, unspecified; I10 Essential (primary) hypertension; E55.9 Vitamin D deficiency, unspecified; E66.9 Obesity, unspecified; K21.9 Gastro-esophageal reflux disease without esophagitis; E78.5 Hyperlipidemia, unspecified; R07.89 Other chest pain; G43.909 Migraine, unspecified, not intractable, without status migrainosus; M48.061 Spinal stenosis, lumbar region without neurogenic claudication; D64.9 Anemia, unspecified; N83.209 Unspecified ovarian cyst, unspecified side; K76.0 Fatty (change of) liver, not elsewhere classified; Z68.33 Body mass index [BMI] 33.0-33.9, adult; Z85.850 Personal history of malignant neoplasm of thyroid; Z90.49 Acquired absence of other specified parts of digestive tract; Z88.0 Allergy status to penicillin